=== PATIENT | female | born 1965 | race Caucasian/White ===

== ENCOUNTER 2018-03-04 10:52 | Emergency (ER) | payer BC ==
[2018-03-04 11:26] VITALS: BP 129/97
--- NOTE | 2018-03-04 11:29 | UC ---
Lower Extremity/Ankle HPI - HPI Summary HPI Summary: 53-year-old woman comes to clinic today with a chief complaint of right leg pain. Pain for about 2 weeks. Worst pain is in the right calf in the back of the knee. She has been driving long distances and the car the last couple weeks. She believes her sister of Occasions from a deep venous thrombosis. She is a smoker. Chest pain or shortness of breath no fevers no chills no known trauma. The pain radiates down to the foot and sometimes has back pain that radiates through the right buttock down to the right leg. She denies anything that makes the pain worse or better. - History of Current Complaint Chief Complaint: UCLowerExtremity Stated Complaint: LEG PAIN Time Seen by Provider: 03/04/18 11:07 Pain Intensity: 5 - Allergies/Home Medications Allergies/Adverse Reactions: Allergies Allergy/AdvReac Type Severity Reaction Status Date / Time acetaminophen [From Midol] Allergy Altered Verified 03/04/18 11:16 Mental Status codeine Allergy See Comment Verified 03/04/18 11:15 cyclobenzaprine Allergy Altered Verified 03/04/18 11:16 [From Flexeril] Mental Status iodine Allergy Rash Verified 03/04/18 11:16 morphine Allergy Hives Verified 03/04/18 11:15 nalbuphine [From Nubain] Allergy See Comment Verified 03/04/18 11:13 pamabrom [From Midol] Allergy Altered Verified 03/04/18 11:16 Mental Status topiramate [From Topamax] Allergy See Comment Verified 03/04/18 11:16 doxycycline AdvReac Abdominal Verified 03/04/18 11:16 Pain Contrast Dye Allergy Hives Uncoded 03/04/18 11:15 Home Medications: Home Medications Cholecalciferol (Vitamin D3) [Vitamin D3] 1,000 unit PO DAILY 03/04/18 [History Confirmed 03/04/18] Cyanocobalamin (Vitamin B-12) [Hm Vitamin B12 Ultra Stre] 5,000 mcg PO DAILY [History Confirmed 03/04/18] Ferrous Fumarate/Folic Acid [Hemocyte-F] 1 tab PO DAILY 03/04/18 [History Confirmed 03/04/18] Folic Acid 800 mcg PO DAILY 03/04/18 [History Confirmed 03/04/18] Levothyroxine TAB* [Synthroid TAB*] 75 mcg PO 0800 03/04/18 [History Confirmed 03/04/18] Omeprazole CAP* [Prilosec CAP* 20 MG] 20 mg PO DAILY 03/04/18 [History Confirmed 03/04/18] Sertraline HCl [Zoloft] 100 mg PO DAILY 03/04/18 [History Confirmed 03/04/18] PMH/Surg Hx/FS Hx/Imm Hx Previously Healthy: Yes Endocrine History: Hypothyroidism GI/ History: Gastroesophageal Reflux - Surgical History Surgical History: Yes Surgery Procedure, Year, and Place: 2014 Gallbladder. Back surgery - Family History Known Family History: Positive: Blood Disorder - Social History Alcohol Use: Rare Substance Use Type: None Smoking Status (MU): Current Every Day Smoker Review of Systems All Other Systems Reviewed And Are Negative: Yes Constitutional: Positive: Negative Skin: Positive: Negative Eyes: Positive: Negative ENT: Positive: Negative Respiratory: Positive: Negative Cardiovascular: Positive: Negative Gastrointestinal: Positive: Negative Motor: Positive: Negative Neurovascular: Positive: Negative Musculoskeletal: Positive: Calf Tenderness - SEE HPI Neurological: Positive: Negative Psychological: Positive: Negative Is Patient Immunocompromised?: No Physical Exam Triage Information Reviewed: Yes Appearance: Well-Appearing, No Pain Distress, Well-Nourished Vital Signs: Initial Vital Signs Temp 99.4 F 03/04/18 11:08 Pulse 74 03/04/18 11:08 Resp 18 03/04/18 11:08 BP 129/97 03/04/18 11:08 Pulse Ox 95 03/04/18 11:08 Vital Signs Reviewed: Yes Eye Exam: Normal Eyes: Positive: Conjunctiva Clear Respiratory: Positive: Lungs clear, Normal breath sounds, No respiratory distress Cardiovascular: Positive: RRR Musculoskeletal: Positive: Strength Intact, ROM Intact, Other: - Patient is tender to palpation in the right calf in the back of the right knee. Her low back is nontender to palpation there is no tenderness in the sciatic distribution in the right buttock. Positive dorsalis pedis posterior tibial pulses on the right leg. Capillary refill the right leg no sensation deficit. Plantarflex and dorsiflexion knee flexion extension and hip extension are all normal and do not elicit any more pain in the strength is 5 out of 5. Neurological Exam: Normal Neurological: Positive: Alert, Muscle Tone Normal Psychological Exam: Normal Psychological: Positive: Age Appropriate Behavior Skin Exam: Normal Lower Extremity Course/Dx - Course Course Of Treatment: Patient's pain distribution can be due to sciatica or a DVT of the right leg. Here in clinic today we do not have access to ultrasound therefore I recommended the patient go to the emergency department now for further evaluation to ensure that she does not have a deep venous thrombosis. Patient has multiple allergies and she's not sure of any pain medicines that she can take safely other than acetaminophen. Therefore she will use acetaminophen as needed for the pain. - Differential Dx/Diagnosis Provider Diagnosis: Right leg pain Discharge - Sign-Out/Discharge Documenting (check all that apply): Patient Departure All imaging exams completed and their final reports reviewed: No Studies - Discharge Plan Condition: Stable Disposition: HOME-RECOMMEND TO ED Patient Education Materials: Leg Pain (ED) Referrals: [facility] [Outside] Additional Instructions: GO DIRECTLY TO THE EMERGENCY DEPARTMENT FOR FURTHER EVALUATION OF YOUR RIGHT LEG PAIN TO BE EVALUATED FOR POSSIBLE DVT.. - Billing Disposition and Condition Condition: STABLE Disposition: Home-Recommend to ED
== END 2018-03-04 11:34 | disposition home health service (06) ==
LOC: UCEAST 10:52
DX: M79.604 Pain in right leg (principal); E03.9 Hypothyroidism, unspecified; K21.9 Gastro-esophageal reflux disease without esophagitis; F17.200 Nicotine dependence, unspecified, uncomplicated; Z83.2 Family history of diseases of the blood and blood-forming organs and certain disorders involving the immune mechanism; Z88.5 Allergy status to narcotic agent; Z88.8 Allergy status to other drugs, medicaments and biological substances; Z91.09 Other allergy status, other than to drugs and biological substances; Z88.1 Allergy status to other antibiotic agents; Z91.041 Radiographic dye allergy status; Z79.899 Other long term (current) drug therapy; Z98.890 Other specified postprocedural states
CPT/HCPCS: 99202; G0463

== ENCOUNTER 2018-03-04 11:50 | Emergency (ER) | payer BC ==
[2018-03-04 14:40] VITALS: BP 133/86
--- NOTE | 2018-03-04 14:56 | ED ---
Lower Extremity - HPI Summary HPI Summary: Patient is a 53-year-old female presenting to the ED with right leg pain. She endorses an extensive travel history recently and is concerned over a DVT. She denies any erythema or warmth. Endorses pain to the posterior thigh running down to the calf and into the foot. She has had back surgery several years ago and states this feels somewhat similar to her sciatic pain. She states that skin is also painful to the touch. This pain is intermittent, not worse or better with positioning or rest. She remains ambulatory. Denies any fevers, sweats, chills. - History of Current Complaint Chief Complaint: EDExtremityLower Stated Complaint: RIGHT LEG PAIN Time Seen by Provider: 03/04/18 13:02 Hx Obtained From: Patient Mechanism Of Injury: Unknown Onset of Pain: Days Onset/Duration: Days Severity Initially: Moderate Severity Currently: Moderate Pain Intensity: 6 Pain Scale Used: 0-10 Numeric Timing: Constant Location: Is Discrete @ - posterior R thigh and calf pain Associated Signs And Symptoms: Negative: Swelling, Redness, Bruising, Fever, Weakness, Dizziness, Abdominal Pain Aggravating Factor(s): Standing, Ambulation Alleviating Factor(s): Rest Able to Bear Weight: Yes - Risk Factors Gout Risk Factors: Negative DVT Risk Factors: Negative Septic Arthritis Risk Factor: Negative - Allergies/Home Medications Allergies/Adverse Reactions: Allergies Allergy/AdvReac Type Severity Reaction Status Date / Time acetaminophen [From Midol] Allergy Altered Verified 03/04/18 11:53 Mental Status codeine Allergy See Comment Verified 03/04/18 11:53 cyclobenzaprine Allergy Altered Verified 03/04/18 11:53 [From Flexeril] Mental Status iodine Allergy Rash Verified 03/04/18 11:53 morphine Allergy Hives Verified 03/04/18 11:53 nalbuphine [From Nubain] Allergy See Comment Verified 03/04/18 11:53 pamabrom [From Midol] Allergy Altered Verified 03/04/18 11:53 Mental Status topiramate [From Topamax] Allergy See Comment Verified 03/04/18 11:53 doxycycline AdvReac Abdominal Verified 03/04/18 11:53 Pain Contrast Dye Allergy Hives Uncoded 03/04/18 11:53 PMH/Surg Hx/FS Hx/Imm Hx Previously Healthy: Yes Endocrine/Hematology History: Reports: Hx Thyroid Disease - Surgical History Surgery Procedure, Year, and Place: 2014 Gallbladder. Back surgery - Immunization History Hx Pertussis Vaccination: No Immunizations Up to Date: Yes Infectious Disease History: No Infectious Disease History: Denies: Traveled Outside the [place] in Last 30 Days - Family History Known Family History: Positive: Blood Disorder - Social History Occupation: Employed Full-time Lives: With Family Alcohol Use: Rare Hx Substance Use: No Substance Use Type: Reports: None Hx Tobacco Use: Yes Smoking Status (MU): Light Every Day Tobacco Smoker Review of Systems Constitutional: Negative Negative: Fever, Chills, Fatigue, Skin Diaphoresis Negative: Palpitations, Chest Pain Negative: Shortness Of Breath, Cough Genitourinary: Negative Positive: no symptoms reported, see HPI Positive: Myalgia - posterior thigh and calf pain. Negative: Arthralgia Skin: Negative Negative: Headache, Weakness, Paresthesia All Other Systems Reviewed And Are Negative: Yes Physical Exam Triage Information Reviewed: Yes Vital Signs On Initial Exam: Initial Vitals Temp Pulse Resp BP Pulse Ox 97.9 F 70 16 120/78 99 03/04/18 11:53 03/04/18 11:53 03/04/18 11:53 03/04/18 11:53 03/04/18 11:53 Vital Signs Reviewed: Yes Appearance: Positive: Well-Appearing, Well-Nourished Skin: Positive: Warm, Skin Color Reflects Adequate Perfusion Head/Face: Positive: Normal Head/Face Inspection Eyes: Positive: EOMI, Conjunctiva Clear Neck: Positive: Supple, No Lymphadenopathy Respiratory/Lung Sounds: Positive: Clear to Auscultation, Breath Sounds Present Cardiovascular: Positive: RRR, Pulses are Symmetrical in both Upper and Lower Extremities Musculoskeletal: Positive: Strength/ROM Intact, Pain @ - posterior thigh and calf Neurological: Positive: Speech Normal Psychiatric: Positive: Affect/Mood Appropriate AVPU Assessment: Alert Diagnostics - Vital Signs Vital Signs Temp Pulse Resp BP Pulse Ox 03/04/18 14:39 98.3 F 55 16 133/86 99 03/04/18 11:53 97.9 F 70 16 120/78 99 - Laboratory Lab Statement: Any lab studies that have been ordered have been reviewed, and results considered in the medical decision making process. Lower Extremity Course/Dx - Course Course Of Treatment: Patient is given prednisone 50 mg once daily 5 days for possible sciatic pain. No evidence of DVT on US. Patient is okay with discharge at this time. - Diagnoses Differential Diagnosis/HQI/PQRI: Positive: Sciatica, Sprain, Strain Provider Diagnoses: Leg pain, posterior Discharge - Sign-Out/Discharge Documenting (check all that apply): Patient Departure - Discharge Plan Condition: Stable Disposition: HOME Prescriptions: predniSONE TAB* [Deltasone TAB*] 50 mg PO DAILY #5 tab Referrals: No Primary Care Phys,NOPCP [Primary Care Provider] - Additional Instructions: Take 1 tab daily x 5 days - Billing Disposition and Condition Condition: STABLE Disposition: Home
== END 2018-03-04 14:39 | disposition home or self-care (01) ==
LOC: ED 11:50
DX: M79.661 Pain in right lower leg (principal); Z72.0 Tobacco use
CPT/HCPCS: 99282